=== PATIENT | male | born 1945 | race Caucasian/White ===

== ENCOUNTER 2020-06-27 15:01 | Emergency (ER) | payer MEDICARE, OTHER ==
--- NOTE | 2020-06-27 15:56 | CRLCT ---
INDICATION: Right arm weakness. TECHNIQUE: CT of the head without contrast. Coronal and sagittal reformats. Bone and soft tissue algorithms. COMPARISON: No prior studies available for comparison at this institution. FINDINGS: No acute intracranial hemorrhage or extra-axial collection. No evidence of acute cortical infarction. 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 No mass effect or midline shift. Mild generalized cerebral/cerebellar parenchymal volume loss. Mild regions of decreased attenuation within the periventricular and subcortical white matter of both cerebral hemispheres most likely reflects chronic microvascular ischemic disease and age related change in this patient. Vascular calcifications within the carotid siphons. Orbital contents are normal. No calvarial fractures. No lytic or sclerotic osseous lesions within the calvarium or skull base. Scalp and other imaged soft tissue structures are normal. Mastoid air cells are clear. Incidental 1 centimeter ovoid lesion in the scalp overlying the right forehead potentially calcified sebaceous cyst or other benign dermatologic lesion. IMPRESSION: 1. No acute intracranial abnormality. 2. 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 Please note that all CT scans at this facility use dose modulation, iterative reconstruction, and/or weight-based dosing when appropriate to reduce radiation dose to as low as reasonably achievable. Dictated by Shahriar Cuellar MD @ Jun 27 2020 3:49PM Signed by Dr. Shahriar Cuellar @ Jun 27 2020 3:55PM
[2020-06-27] MEDS ORDERED: Sodium Chloride 0.9% 10 ML Syringe FLUSH PRN (16:06)
[2020-06-27] MEDS ORDERED: Sodium Chloride 0.9% 10 ML Syringe FLUSH ONE (16:36)
[2020-06-27] MEDS ORDERED: Sodium Chloride 0.9% 100 ML IV SCH (16:45)
[2020-06-27] MEDS ORDERED: Iopamidol 755 Mg/ML 100 ML Bottle IV SCH (16:45)
--- NOTE | 2020-06-27 18:04 | CRLCT ---
DATE: 06/27/2020. CLINICAL HISTORY: Patient with weakness in right arm and leg. TECHNIQUE: Standard helical CT image acquisition through the head was performed after intravenous contrast bolus enhancement. Multiplanar reconstructed images were performed and interpreted. COMPARISON: Correlation with head CT dated 06/27/2020. FINDINGS: Scattered calcified and noncalcified atherosclerosis throughout the petrous and cavernous segments of the right and left internal carotid arteries without resulting flow-limiting luminal stenosis. The supraclinoid segments of the internal carotid arteries are unremarkable. The anterior and middle cerebral arteries are patent. The anterior communicating artery is visualized and within normal limits. The right vertebral artery is dominant. The nondominant left vertebral artery demonstrate multifocal atherosclerosis with resulting mild stenosis of the mid and distal intracranial segments. The basilar trunk and posterior cerebral arteries are patent. There is normal opacification of major intracranial venous structures. IMPRESSION: 1. No intracranial proximal large vessel occlusion or flow-limiting luminal stenosis. 2. Intracranial atherosclerosis with mild luminal stenosis of the intracranial segment of the nondominant left vertebral artery. Please note that all CT scans at this facility use dose modulation, iterative reconstruction, and/or weight-based dosing when appropriate to reduce radiation dose to as low as reasonably achievable. Dictated by Davi Guzmán MD @ Jun 28 2020 8:25AM Signed by Dr. Davi Guzmán @ Jun 28 2020 8:33AM
--- NOTE | 2020-06-27 18:36 | EDM.PDOC ---
ED HPI GENERAL MEDICAL PROBLEM - General Chief Complaint: Neurological Problem Stated Complaint: LOSS OF FEELING RIGHT SIDE Time Seen by Provider: 06/27/20 15:25 Source of Information: Reports: Patient History Limitations: Reports: No Limitations - History of Present Illness INITIAL COMMENTS - FREE TEXT/NARRATIVE: pt arrived with a history of having difficulty using his rt arm and rt leg. He was not able to stand or walk and he could not lift his rt arm. This did last for about 1,5 hurs. He did not have a headache. He has now recovered all of the use of his leg and his arm. o Onset: Today, Sudden Duration: Hour(s): Location: Reports: Head Associated Symptoms: Reports: Weakness Left Frontal Head Pain Score (Numeric/FACES): 1 - Related Data Allergies Allergy/AdvReac Type Severity Reaction Status Date / Time No Known Allergies Allergy Verified 06/27/20 15:18 Home Meds: Home Meds amLODIPine [Norvasc] 5 mg PO DAILY 06/27/20 [History] Past Medical History HEENT History: Reports: None Cardiovascular History: Reports: Hypertension Respiratory History: Reports: None Genitourinary History: Reports: None Musculoskeletal History: Reports: None Neurological History: Reports: None Psychiatric History: Reports: None Endocrine/Metabolic History: Reports: None Hematologic History: Reports: None Immunologic History: Reports: None Oncologic (Cancer) History: Reports: None Dermatologic History: Reports: None - Infectious Disease History Infectious Disease History: Reports: C-Difficile - Past Surgical History HEENT Surgical History: Reports: None GI Surgical History: Reports: Hernia, Inguinal Other GI Surgeries/Procedures: bilateral Social & Family History - Tobacco Use Tobacco Use Status *Q: Current Every Day Tobacco User Years of Tobacco use: 50 Packs/Tins Daily: 1 - Caffeine Use Caffeine Use: Reports: Coffee - Recreational Drug Use Recreational Drug Use: No ED ROS GENERAL - Review of Systems Review Of Systems: See Below Constitutional: Reports: No Symptoms HEENT: Reports: No Symptoms Respiratory: Reports: No Symptoms Cardiovascular: Reports: No Symptoms Endocrine: Reports: No Symptoms GI/Abdominal: Reports: No Symptoms : Reports: No Symptoms Musculoskeletal: Reports: Other ( weakness in the rt arm. ) ED EXAM, NEURO - Physical Exam Exam: See Below Text/Narrative:: p arrived with weakness in the rt arm which was quite sutle. He had full use of his leg. He had no other symptoms. i Exam Limited By: No Limitations General Appearance: Alert, No Apparent Distress, Anxious, Other (pupils are equal nd reactive. ) Ears: Normal TMs Nose: Normal Inspection Throat/Mouth: Normal Inspection Head Exam: Atraumatic Neck: Normal Inspection Respiratory/Chest: No Respiratory Distress Cardiovascular: Regular Rate, Rhythm GI/Abdominal: Soft, Non-Tender (Male) Exam: Deferred Rectal (Males) Exam: Deferred Neurological: Alert, Oriented x 3 Back Exam: Normal Inspection Extremities: Other ( slight weakness in the rt arm. ) Psychiatric: Normal Affect, Anxious Course - Vital Signs Last Recorded V/S: Last Vital Signs Temp 36.3 C 06/27/20 15:10 Pulse 64 06/27/20 18:19 Resp 18 06/27/20 16:17 BP 145/91 H 06/27/20 18:19 Pulse Ox 98 06/27/20 18:19 - Orders/Labs/Meds Orders: Active Orders 24 hr Category Date Time Status EKG Documentation Completion [RC] ASDIRECTED Care 06/27/20 15:12 Active Sodium Chloride 0.9% [Saline Flush] Med 06/27/20 16:06 Active 10 ml FLUSH ASDIRECTED PRN Saline Lock Insert [OM.PC] Routine Oth 06/27/20 16:06 Ordered EKG 12 Lead [EK] Routine Ther 06/27/20 15:12 Ordered Medication Orders Sodium Chloride (Saline Flush) 10 ml FLUSH ASDIRECTED PRN PRN Reason: Keep Vein Open Labs: Laboratory Tests 06/27/20 06/27/20 06/27/20 Range/Units 15:24 15:24 15:33 WBC 10.3 (4.5-11.0) K/uL RBC 5.37 (4.30-5.90) M/uL Hgb 15.4 H (12.0-15.0) g/dL Hct 46.6 (40.0-54.0) % MCV 87 (80-98) fL MCH 29 (27-31) pg MCHC 33 (32-36) % Plt Count 192 (150-400) K/uL Neut % (Auto) 71 H (36-66) % Lymph % (Auto) 23 L (24-44) % [place] % (Auto) 5 (2-6) % Eos % (Auto) 1 L (2-4) % Baso % (Auto) 0 (0-1) % Sodium 137 L (140-148) mmol/L Potassium 4.3 (3.6-5.2) mmol/L Chloride 101 (100-108) mmol/L Carbon Dioxide 26 (21-32) mmol/L Anion Gap 14.3 H (5.0-14.0) mmol/L BUN 21 H (7-18) mg/dL Creatinine 1.2 (0.8-1.3) mg/dL Est Cr Clr Drug Dosing 58.39 mL/min Estimated GFR (MDRD) 59 L (>60) Glucose 112 H (74-106) mg/dL Calcium 8.7 (8.5-10.1) mg/dL Total Bilirubin 0.4 (0.2-1.0) mg/dL AST 26 (15-37) U/L ALT 31 (12-78) U/L Alkaline Phosphatase 101 (46-116) U/L Total Protein 7.4 (6.4-8.2) g/dL Albumin 4.0 (3.4-5.0) g/dL Globulin 3.4 (2.3-3.5) g/dL Albumin/Globulin Ratio 1.2 (1.2-2.2) Urine Color Yellow (YELLOW) Urine Appearance Clear (CLEAR) Urine pH 7.0 (5.0-8.0) Ur Specific [place] [employer] 1.025 (1.008-1.030) Urine Protein 30 H (NEGATIVE) mg/dL Urine Glucose (UA) Negative (NEGATIVE) mg/dL Urine Ketones Trace H (NEGATIVE) mg/dL Urine Occult Blood Negative (NEGATIVE) Urine Nitrite Negative (NEGATIVE) Urine Bilirubin Negative (NEGATIVE) Urine Urobilinogen 1.0 (0.2-1.0) EU/dL Ur Leukocyte Esterase Negative (NEGATIVE) Urine RBC Not seen (0-5) Urine WBC Not seen (0-5) Ur Epithelial Cells Not seen Urine Bacteria Not seen Meds: Medications Generic Name Dose Route Start Last Admin Trade Name Freq PRN Reason Stop Dose Admin Sodium Chloride 10 ml 06/27/20 16:06 Saline Flush FLUSH ASDIRECTED PRN Keep Vein Open Discontinued Medications Generic Name Dose Route Start Last Admin Trade Name Freq PRN Reason Stop Dose Admin Sodium Chloride 100 mls @ 3.5 mls/sec 06/27/20 16:45 06/27/20 17:38 Normal Saline IV 06/27/20 16:46 4 mls/sec ASDIRECTED MARANDA Administration Iopamidol 100 ml 06/27/20 16:45 06/27/20 17:37 Isovue-370 (76%) IV 06/27/20 16:46 100 ml . DIRECTED MARANDA Administration Sodium Chloride 10 ml 06/27/20 16:36 06/27/20 17:37 Saline Flush FLUSH 06/27/20 16:37 10 ml ONETIME ONE Administration - Re-Assessments/Exams Free Text/Narrative Re-Assessment/Exam: 06/27/20 18:36 lab work was normal. Ekg showed a normal rhythm. His cat scan of the head was normal. A cta of the haead was done which does show stenosis of the vertebral vessels. Departure - Departure Time of Disposition: 18:39 Disposition: DC/Tfer to Acute Hospital 02 Condition: Fair Clinical Impression: TIA (transient ischemic attack) - Discharge Information Referrals: PCP,None [Primary Care Provider] - Care Plan Goals: transfer to . Sepsis Event Note (ED) - Evaluation Sepsis Screening Result: No Definite Risk - Focused Exam Vital Signs: Vital Signs Temp Pulse Resp BP Pulse Ox 06/27/20 18:19 64 145/91 H 98 06/27/20 17:55 60 155/75 H 98 06/27/20 17:20 53 L 132/71 06/27/20 16:17 55 L 18 141/74 H 98 06/27/20 15:36 65 16 154/87 H 98 06/27/20 15:10 36.3 C 69 16 150/89 H 97 - My Orders Last 24 Hours: My Active Orders 06/27/20 15:12 EKG Documentation Completion [RC] ASDIRECTED EKG 12 Lead [EK] Routine 06/27/20 16:06 Sodium Chloride 0.9% [Saline Flush] 10 ml FLUSH ASDIRECTED PRN Saline Lock Insert [OM.PC] Routine - Assessment/Plan Last 24 Hours: My Active Orders 06/27/20 15:12 EKG Documentation Completion [RC] ASDIRECTED EKG 12 Lead [EK] Routine 06/27/20 16:06 Sodium Chloride 0.9% [Saline Flush] 10 ml FLUSH ASDIRECTED PRN Saline Lock Insert [OM.PC] Routine
[2020-06-27] MEDS ORDERED: Aspirin 81 MG Tab.Chew PO ONE (18:38)
== END 2020-06-27 19:23 ==
LOC: JP.ED 15:01
DX: G45.9 Transient cerebral ischemic attack, unspecified (principal); I10 Essential (primary) hypertension; F17.210 Nicotine dependence, cigarettes, uncomplicated; Z79.899 Other long term (current) drug therapy
CPT/HCPCS: 36415; 70450; 70496; 80053; 81001; 85025; 93005; 99285; Q9967; 93010